=== PATIENT | male | born 1970 | race Caucasian/White ===

== ENCOUNTER 2017-10-20 18:33 | Emergency (ER) | payer OTHER ==
[2017-10-20] MEDS ORDERED: Pepcid 20 MG VIAL IV ONE ×2 (19:11→19:27)
[2017-10-20] MEDS ORDERED: Zofran 4 MG/2 ML VIAL IV ONE (19:11)
[2017-10-20] MEDS ORDERED: BENADRYL 50 MG/ML IV ONE (19:11)
[2017-10-20] MEDS ORDERED: Sodium Chloride 0.9% 1000 ML 1,000 ML IV STA (19:11)
[2017-10-20] MEDS ORDERED: Hydromorphone 1 mg/ml Ampule IV ONE (19:11)
--- NOTE | 2017-10-20 19:15 | ERPHSYRPT ---
- History of Present Illness Time Seen by Provider: 10/20/17 19:07 Historian: patient Patient Subjective Stated Complaint: PT REPORTS FEELING LIKE HIS STOMACH IS GOING TO EXPLODE SINCE YESTERDAY-REPORTS VOMITING EVERYTHING HE HAS ATTEMPTED TO EATEN-UNSURE OF FEVER-REPORTS SLIGHT CONSTIPATION THIS AM WITH A BOWEL MOVEMENT Triage Nursing Assessment: PT PALE WARM ET [id number] TENDER TO PALP-RESP EASY ET NONLABORED-BOWEL SOUNDS HYPOACTIVE BUT PRESENT Physician History: CC: abd pain Hx: 47 y/o patient of dr Salcedo with upper abd pain since last night. Feels like belly will explode. Pain worse in RUQ. Mild constipation, no diarrhea. He has been vomiting today. No fever. He had chills. No prior abd surgeries. Takes vitamins. No allergies. Pain is severe and sharp. Allergies/Adverse Reactions: No Known Drug Allergies Allergy (Verified 10/20/17 18:50) Hx Tetanus, Diphtheria Vaccination/Date Given: No Hx Influenza Vaccination/Date Given: No Hx Pneumococcal Vaccination/Date Given: No Immunizations Up to Date: Yes - Review of Systems Constitutional: Chills, Malaise, No Fever Eyes: No Symptoms Ears, Nose, & Throat: No Symptoms Respiratory: No Cough, No Dyspnea Cardiac: No Chest Pain Abdominal/Gastrointestinal: Abdominal Pain, Nausea, Vomiting, Constipation, No Diarrhea Genitourinary Symptoms: No Dysuria, No Hematuria, No Testicle Pain Musculoskeletal: No Back Pain Skin: No Rash Neurological: No Headache All Other Systems: Reviewed and Negative - Past Medical History Pertinent Past Medical History: Yes Neurological History: No Pertinent History ENT History: No Pertinent History Cardiac History: Other Respiratory History: No Pertinent History Endocrine Medical History: No Pertinent History Musculoskeletal History: No Pertinent History GI Medical History: No Pertinent History History: No Pertinent History Psycho-Social History: No Pertinent History Male Reproductive Disorders: No Pertinent History - Past Surgical History Past Surgical History: No Neuro Surgical History: No Pertinent History Cardiac: No Pertinent History Respiratory: No Pertinent History Gastrointestinal: No Pertinent History Genitourinary: No Pertinent History Musculoskeletal: No Pertinent History Male Surgical History: No Pertinent History - Social History Smoking Status: Former smoker Exposure to second hand smoke: Yes Drug Use: none Patient Lives Alone: No (stay home with kid) Significant Family History: no pertinent family hx - Nursing Vital Signs Nursing Vital Signs: Initial Vital Signs Temperature 97.5 F 10/20/17 18:51 Pulse Rate 90 10/20/17 18:51 Respiratory Rate 20 10/20/17 18:51 Blood Pressure 120/77 10/20/17 18:51 O2 Sat by Pulse Oximetry 98 10/20/17 18:51 Pain Scale Pain Intensity 7 - Physical Exam General Appearance: alert, obese Eye Exam: PERRL/EOMI, No scleral icterus Ears, Nose, Throat Exam: normal ENT inspection, moist mucous membranes Neck Exam: normal inspection, non-tender, supple Respiratory Exam: normal breath sounds Cardiovascular Exam: regular rate/rhythm, No murmur Gastrointestinal/Abdomen Exam: soft, tenderness (RUQ and epigastrum with mild guarding, no mass) Male Genitalia Exam: normal genitalia, No testicular tenderness Back Exam: normal inspection, No CVA tenderness Extremity Exam: normal inspection, normal range of motion Neurologic Exam: alert, oriented x 3, cooperative, medical dosimetrist II-XII nml as tested, sensation nml, No motor deficits Skin Exam: warm, dry, No rash SpO2 Interpretation: normal SpO2: 98 Oxygen Delivery: Room Air - Course Nursing assessment & vital signs reviewed: Yes EKG Interpreted by Me: RATE (82), Sinus Rhythm, NORMAL AXIS, NORMAL INTERVALS ( QTc 449), NORMAL QRS, NORMAL ST-T Ordered Tests: Active Orders 24 hr Category Date Time Status Clean Catch Urine Specimen STAT Care 10/20/17 19:11 Active EKG-ER Only STAT Care 10/20/17 19:11 Active IV Insertion STAT Care 10/20/17 19:11 Active NPO (ED) STAT Care 10/20/17 19:11 Active ABDOMEN AND PELVIS W CONTRAST [CT] Stat Exams 10/20/17 19:12 Taken BMP Stat Lab 10/20/17 19:20 Completed CBC W DIFF Stat Lab 10/20/17 19:20 Completed Hepatic Function Panel Stat Lab 10/20/17 19:20 Completed LIPASE Stat Lab 10/20/17 19:20 Completed Lactic Acid Stat Lab 10/20/17 19:25 Completed UA W/RFX UR CULTURE Stat Lab 10/20/17 19:11 Ordered Medication Summary Discontinued Medications Generic Name Dose Route Start Last Admin Trade Name Freq PRN Reason Stop Dose Admin Diphenhydramine HCl 25 mg 10/20/17 19:11 10/20/17 19:34 Benadryl 50 Mg/Ml IV 10/20/17 19:12 25 mg STAT ONE Administration Diphenhydramine HCl Confirm 10/20/17 19:27 Benadryl 50 Mg/Ml Administered 10/20/17 19:28 Dose 50 mg .ROUTE .STK-MED ONE Famotidine 20 mg 10/20/17 19:11 10/20/17 19:34 Pepcid 20 Mg Vial IV 10/20/17 19:12 20 mg STAT ONE Administration Famotidine Confirm 10/20/17 19:27 Pepcid 20 Mg Vial Administered 10/20/17 19:28 Dose 20 mg IV .STK-MED ONE Hydromorphone HCl 1 mg 10/20/17 19:11 10/20/17 19:34 Hydromorphone 1 Mg/Ml Ampule IV 10/20/17 19:12 1 mg STAT ONE Administration Hydromorphone HCl Confirm 10/20/17 19:27 Hydromorphone 1 Mg/Ml Ampule Administered 10/20/17 19:28 Dose 1 mg .ROUTE .STK-MED ONE Sodium Chloride 1,000 mls @ 999 mls/hr 10/20/17 19:11 10/20/17 19:34 Sodium Chloride 0.9% 1000 Ml IV 10/20/17 20:11 999 mls/hr .Q1H1M STA Administration Sodium Chloride Confirm 10/20/17 19:27 Sodium Chloride 0.9% 1000 Ml Administered 10/20/17 19:28 Dose 1,000 mls @ ud .ROUTE .STK-MED ONE Ondansetron HCl 4 mg 10/20/17 19:11 10/20/17 19:34 Zofran 4 Mg/2 Ml Vial IV 10/20/17 19:12 4 mg STAT ONE Administration Ondansetron HCl Confirm 10/20/17 19:27 Zofran 4 Mg/2 Ml Vial Administered 10/20/17 19:28 Dose 4 mg .ROUTE .STK-MED ONE Lab/Rad Data: Laboratory Result Diagrams 10/20/17 19:20 10/20/17 19:20 Laboratory Results 10/20/17 10/20/17 10/20/17 Range/Units 19:25 19:20 19:20 WBC 10.8 H (4.0-10.5) K/mm3 RBC 5.48 (4.1-5.6) M/mm3 Hgb 15.8 (12.5-18.0) gm/dl Hct 48.4 (42-50) % MCV 88.3 (78-100) fl MCH 28.8 (26-32) pg MCHC 32.6 (32-36) g/dl RDW 14.4 H (11.5-14.0) % Plt Count 303 (150-450) K/mm3 MPV 9.6 H (6-9.5) fl Gran % 84.0 H (36.0-66.0) % Lymphocytes % 8.0 L (24.0-44.0) % Monocytes % 6.6 (0.0-12.0) % Eosinophils % 1.3 (0.00-5.0) % Basophils % 0.1 (0.0-0.4) % Basophils # 0.01 (0-0.4) Sodium 136 (136-145) mEq/L Potassium 3.9 (3.5-5.1) mEq/L Chloride 102 (98-107) mEq/L Carbon Dioxide 23.5 (21-32) mEq/L Anion Gap 14.8 (5-15) MEQ/L BUN 17 (9-20) mg/dL Creatinine 1.15 (0.55-1.30) mg/dl Estimated GFR > 60 ML/MIN Glucose 178 H (70-110) MG/DL Lactic Acid 1.2 (0.4-2.0) Calcium 8.3 L (8.5-10.1) mg/dL Total Bilirubin 0.60 (0.2-1.0) mg/dL Direct Bilirubin 0.14 (0.0-0.2) MG/DL AST 24 (15-37) U/L ALT 46 (12-78) U/L Alkaline Phosphatase 98 (46-116) U/L Serum Total Protein 7.9 (6.4-8.2) gm/dL Albumin 3.5 (3.4-5.0) g/dL Lipase 95 (73-393) U/L - Progress Progress Note: 10/20/17 19:[address] to assess for choleycystitis or pancreatitis or perforation. 10/20/17 20:31 CT abd/pelvis: glenn 8:28 PM 10/20/2017: No comps. Mild fluid distended small bowel loops w/ synchronous fluid leveling, ileus vs enteritis. Normal appy. Mild sigmoid diverticulosis. Fatty liver w/ 2 x 4cm hypodense lesion possibly hemangioma. 2.5cm gallstone. 3.2cm R renal cyst. 10/20/17 20:37 Pain and nausea improved. IVF given. Eating popsicle. Explained test results. Advised he follow up with Dr Salcedo in 1-2 days, have sugar rechecked, and will likely need gb sonogram. Will release with zofran and instr. Counseled pt/family regarding: lab results, diagnosis, need for follow-up, rad results - Departure Time of Disposition: 20:37 Departure Disposition: Home Clinical Impression: Abdominal pain, Vomiting, Gallstone Condition: Fair Critical Care Time: No Referrals: ORIN SALCEDO [Primary Care Provider] - Instructions: Abdominal Pain-Adult Additional Instructions: Sip fluids, then bland low fat, no spicy, no grease diet. See Dr Salcedo in 1-2 days for recheck and to recheck gallbladder and sugar. No driving tonite. Rletitia montague to [place]. ABDOMINAL PAIN 1. There are several different causes for abdominal pain, some of which may not be able to be identified on initial examination. 2. The important thing to remember is that bodily functions can change in a short period of time. If you notice any of the following symptoms, return to the emergency department or consult your doctor immediately: A. Worsening pain or no improvement in the next 12 hours. B. Increasing, severe abdominal pain C. Blood in stool D. Black stools E. Persistent vomiting F. Fever or chills or other symptoms Prescriptions: Ondansetron ODT 4 MG [Zofran Odt 4 mg] 1 tab PO Q6H PRN PRN #10 tab.rapdis PRN Reason: Nausea/Vomiting
[2017-10-20] MEDS ORDERED: Hydromorphone 1 mg/ml Ampule ONE (19:27)
[2017-10-20] MEDS ORDERED: Sodium Chloride 0.9% 1000 ML 1,000 ML ONE (19:27)
[2017-10-20] MEDS ORDERED: BENADRYL 50 MG/ML ONE (19:27)
[2017-10-20] MEDS ORDERED: Zofran 4 MG/2 ML VIAL ONE (19:27)
[2017-10-20 19:30] LABS: BASOPHIL % 0.1 % (0.0-0.4); Eosinophil % 1.3 % (0.00-5.0); Mean Cell Volume 88.3 fl (78-100); Mean Corpuscular Hemoglobin 28.8 pg (26-32); Mean Platelet Volume 9.6 fl (6-9.5); Monocytes % 6.6 % (0.0-12.0); Platelet Count 303 K/mm3 (150-450); Red Blood Count 5.48 M/mm3 (4.1-5.6); Red Cell Distribution Width 14.4 % (11.5-14.0); White Blood Count 10.8 K/mm3 (4.0-10.5)
[2017-10-20 19:49] LABS: ALBUMIN 3.5 g/dL (3.4-5.0); ALKALINE PHOSPHATASE 98 U/L (46-116); ANION GAP 14.8 MEQ/L (5-15); BLOOD UREA NITROGEN 17 mg/dL (9-20); CHLORIDE 102 mEq/L (98-107); Carbon Dioxide 23.5 mEq/L (21-32); Direct Bilirubin 0.14 MG/DL (0.0-0.2); Glucose 178 MG/DL (70-110); LIPASE 95 U/L (73-393); Potassium 3.9 mEq/L (3.5-5.1); SGOT/AST 24 U/L (15-37); SGPT/ALT 46 U/L (12-78); SODIUM 136 mEq/L (136-145); Total Protein 7.9 gm/dL (6.4-8.2)
[2017-10-20 20:32] VITALS: O2SAT 98
[2017-10-20 20:33] VITALS: BP 134/68
[2017-10-20] MEDS ORDERED: ZOFRAN ODT 4 MG PO ONE (20:36)
[2017-10-20] MEDS ORDERED: ZOFRAN ODT 4 MG ONE (20:38)
[2017-10-20 20:44] VITALS: PULSE 78
--- NOTE | 2017-10-21 09:06 | XRAY ---
Indication: Abdominal pain and emesis. Hypoactive bowel sounds. Multiple contiguous axial images obtained through the abdomen and pelvis using 80 cc Isovue 370 contrast only. Comparison: None Lung bases demonstrates mild bibasilar dependent atelectasis. No infiltrate or effusion. Heart is not enlarged. Noncontrasted stomach and bowel loops appear nonobstructed. There are several mildly fluid distended jejunal and ileal bowel loops with synchronous fluid leveling, ileus versus enteritis. Normal appendix. Mild scattered sigmoid diverticulosis without diverticulitis. No free fluid/air. Mild diffuse fatty liver with 2 x 4 cm hypodense lesion just lateral to the falciform ligament with subtle centripetal enhancement on delayed imaging favoring hemangioma. 2.5 cm gallstone. No abnormal biliary distention. Both kidneys enhance and excrete with a 3.5 cm exophytic right renal cyst. Remaining liver, gallbladder, pancreas, spleen, adrenal glands, kidneys, ureters, and bladder appear unremarkable. Very minimal aortoiliac calcifications. No clear pathologic retroperitoneal lymphadenopathy. Osseous structures intact. Impression: 1. Fluid distended small bowel loops with synchronous fluid leveling, ileus versus enteritis. 2. Sigmoid diverticulosis without diverticulitis. 3. Fatty liver. Probable hepatic hemangioma which could be confirmed with repeat CT exam using hemangioma protocol. 4. Gallstone and right renal cyst. CT DI 23.68
== END 2017-10-20 20:50 | disposition home or self-care (01) ==
LOC: ED 18:33
DX: R10.10 Upper abdominal pain, unspecified (principal); R11.2 Nausea with vomiting, unspecified; K80.80 Other cholelithiasis without obstruction; R10.11 Right upper quadrant pain
CPT/HCPCS: 36000; 36415; 74177; 80048; 80076; 83605; 83690; 85025; 93005; 99284; J1170; J1200; J2405; Q0162

== ENCOUNTER 2018-04-28 03:25 | Emergency (ER) | payer OTHER ==
[2018-04-28] MEDS ORDERED: Sodium Chloride 0.9% 1000 ML 1,000 ML ONE (03:58)
[2018-04-28] MEDS ORDERED: Zofran 4 MG/2 ML VIAL ONE (03:58)
[2018-04-28] MEDS ORDERED: MORPHINE SULFATE 4 MG INJ ONE ×2 (03:58→06:01)
[2018-04-28] MEDS: Sodium Chloride 0.9% 1000 ML 1,000 ML IV STA (04:01)
[2018-04-28] MEDS: Zofran 4 MG/2 ML VIAL IV ONE (04:01)
[2018-04-28] MEDS: MORPHINE SULFATE 4 MG INJ IV ONE ×2 (04:01→06:03)
[2018-04-28 04:14] LABS: BASOPHIL % 0.2 % (0.0-0.4); Basophil (Absolute #) 0.03 (0-0.4); Eosinophil % 4.4 % (0.00-5.0); Eosinophil (Absolute #) 0.54 (0-0.5); Granulocyte Absolute (ANC) 8.59 (1.4-6.9); Granulocytes % 69.9 % (36.0-66.0); Hematocrit 34.9 % (42-50); Hemoglobin 11.4 gm/dl (12.5-18.0); Lymphocyte (Absolute #) 2.07 (1.0-4.6); Lymphocytes % 16.9 % (24.0-44.0); Mean Cell Volume 89.5 fl (78-100); Mean Corpuscular Hemoglobin 29.2 pg (26-32); Mean Corpuscular Hgb Concent. 32.7 g/dl (32-36); Mean Platelet Volume 9.9 fl (6-9.5); Monocyte (Absolute #) 1.05 (0.0-1.3); Monocytes % 8.6 % (0.0-12.0); Platelet Count 491 K/mm3 (150-450); Red Cell Distribution Width 13.8 % (11.5-14.0); White Blood Count 12.3 K/mm3 (4.0-10.5)
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
[2018-04-28 04:30] LABS: ALBUMIN 4.1 g/dL (3.5-5.0); ANION GAP 14.9 MEQ/L (5-15); BILIRUBIN,TOTAL 0.4 mg/dL (0.2-1.3); Calcium 9.1 mg/dL (8.4-10.2); Creatinine 1 1.71 mg/dL (0.66-1.25); Potassium 4.1 mmol/L (3.5-5.1); Total Protein 7.7 g/dL (6.3-8.2)
[2018-04-28 06:18] LABS: Appearance CLEAR (CLEAR); Bacteria MODERATE /HPF (NEGATIVE); Bilirubin NEGATIVE (NEGATIVE); Blood 250 Ery/ul (0-5); Epithelial Cells FEW /HPF (FEW); Glucose NEGATIVE (NEGATIVE); Ketones NEGATIVE (NEGATIVE); Leukocyte Esterase TRACE (NEGATIVE); Mucus SLIGHT /HPF (NEGATIVE); Nitrite NEGATIVE (NEGATIVE); Protein,Urine Dip TRACE (Negative); Urobilinogen NORMAL mg/dL (0-1); WBC 0-2 /HPF (0-5)
[2018-04-28] MEDS: Flomax 0.4 MG PO ONE (06:31)
[2018-04-28] MEDS ORDERED: Flomax 0.4 MG ONE (06:31)
[2018-04-28 06:33] VITALS: BP 121/78; PULSE 65
[2018-04-28 06:34] VITALS: O2SAT 100
--- NOTE | 2018-04-28 08:57 | XRAY ---
Indication: Right lower quadrant pain. Difficulty urinating. Multiple contiguous axial images obtained through the abdomen and pelvis without contrast using renal stone protocol. Comparison: Contrast exam October 20, 2017. Lung bases again demonstrates minimal dependent atelectasis, less than before. New inferior lingular noncalcified masslike opacity measuring at least 2 cm in greatest axial dimension with irregular margins. Heart is not enlarged. New 2-3 mm distal right ureteral calculus approximately 1 cm proximal to the UVJ. There is also new mild right-sided hydronephrosis, perinephric stranding, and mild ureteral prominence consistent with obstructive uropathy. Stable right upper renal pole exophytic cyst. Noncontrasted stomach and bowel loops appear nonobstructed. Normal appendix. Stable fatty liver and previous reported hepatic hemangioma. Interval enlarging 3 cm gallstone without abnormal biliary distention. Stable 8 mm left adrenal adenoma. Remaining liver, gallbladder, pancreas, spleen, adrenal glands, left kidney, left ureter, and bladder appear unremarkable for noncontrast exam. Again very minimal aortoiliac calcifications without AAA. Osseous structures intact. Impression: 1. New 2-3 mm distal right ureteral calculus producing obstruction as detailed. 2. Stable right renal cyst, left adrenal adenoma, fatty liver, and previous reported hepatic hemangioma. 3. Minimally enlarging 3 cm gallstone better evaluated with ultrasound if clinically warranted. 4. New 2 cm lingula masslike opacity. Comparison CT chest studies would be of benefit if performed elsewhere. If not available, recommend CT chest to establish baseline with follow-up exams per Fleischner guidelines. Alternatively, PET/CT could be performed. Comment: Preliminary interpretation was made by [facility]. No discrepancy. CTDI 28.13
== END 2018-04-28 07:07 | disposition home or self-care (01) ==
LOC: ED 03:25
DX: N13.2 Hydronephrosis with renal and ureteral calculous obstruction (principal); Z79.899 Other long term (current) drug therapy
CPT/HCPCS: 36000; 36415; 74176; 80053; 81000; 83690; 85025; 87086; 96360; 96374; 96375; 96376; 99285; J2270; J2405; A9270-GY

== ENCOUNTER 2019-10-22 05:34 | Emergency (ER) | payer OTHER ==
[2019-10-22] MEDS ORDERED: MORPHINE SULFATE 2 MG INJ IV ONE (05:51)
[2019-10-22] MEDS ORDERED: Sodium Chloride 0.9% 1000 ML 1,000 ML IV STA (05:51)
[2019-10-22] MEDS ORDERED: Sodium Chloride 0.9% 1000 ML 1,000 ML ONE (05:55)
[2019-10-22] MEDS ORDERED: MORPHINE SULFATE 2 MG INJ ONE (05:55)
--- NOTE | 2019-10-22 05:55 | ERPHSYRPT ---
- History of Present Illness Time Seen by Provider: 10/22/19 05:53 Historian: patient Exam Limitations: no limitations Patient Subjective Stated Complaint: pt c/o lt lower abd pain that radiates to scrotum area Triage Nursing Assessment: pt ambulated to rm 6, cooperative and alert and oriented x3. Pt c/o LLQ pain, tender on palpation which radiates to lt scrotal area. Abd lg, obese with active bs x4 quad. Lungs clear, Physician History: Pt c/o LLQ pain, tender on palpation which radiates to lt scrotal area, no fever, no blood in urine Timing/Duration: today Quality: aching, cramping Abdominal Pain Onset Location: LLQ Pain Radiation: groin Severity of Pain-Max: moderate Severity of Pain-Current: moderate Modifying Factors: Improves With: nothing Associated Symptoms: denies symptoms Allergies/Adverse Reactions: No Known Drug Allergies Allergy (Verified 04/28/18 03:37) Hx Tetanus, Diphtheria Vaccination/Date Given: Yes Hx Influenza Vaccination/Date Given: No Hx Pneumococcal Vaccination/Date Given: No Immunizations Up to Date: Yes - Review of Systems Constitutional: No Fever, No Chills Eyes: No Symptoms Ears, Nose, & Throat: No Symptoms Respiratory: No Cough, No Dyspnea Cardiac: No Chest Pain, No Edema, No Syncope Abdominal/Gastrointestinal: Abdominal Pain, No Nausea, No Vomiting, No Diarrhea Genitourinary Symptoms: Urgency, Flank Pain, Testicle Pain, No Dysuria, No Hematuria, No Urinary Retention Musculoskeletal: No Back Pain, No Neck Pain Skin: No Rash Neurological: No Dizziness, No Focal Weakness, No Sensory Changes Psychological: No Symptoms Endocrine: No Symptoms All Other Systems: Reviewed and Negative - Past Medical History Pertinent Past Medical History: Yes Neurological History: No Pertinent History ENT History: No Pertinent History Cardiac History: Arrhythmia Respiratory History: No Pertinent History Endocrine Medical History: No Pertinent History Musculoskeletal History: No Pertinent History GI Medical History: No Pertinent History History: No Pertinent History Psycho-Social History: No Pertinent History Male Reproductive Disorders: No Pertinent History - Past Surgical History Past Surgical History: Yes Neuro Surgical History: No Pertinent History Cardiac: No Pertinent History Respiratory: No Pertinent History Gastrointestinal: No Pertinent History Genitourinary: No Pertinent History Musculoskeletal: No Pertinent History Male Surgical History: No Pertinent History Other Surgical History: left foot reconstruction from mowing accident - Social History Smoking Status: Former smoker Exposure to second hand smoke: No Drug Use: none Patient Lives Alone: No Significant Family History: no pertinent family hx - Nursing Vital Signs Nursing Vital Signs: Initial Vital Signs Temperature 98.0 F 10/22/19 05:39 Pulse Rate 84 10/22/19 05:39 Respiratory Rate 18 10/22/19 05:39 Blood Pressure 158/97 10/22/19 05:39 O2 Sat by Pulse Oximetry 98 10/22/19 05:39 Pain Scale Pain Intensity 8 - Physical Exam General Appearance: no apparent distress, alert Eye Exam: PERRL/EOMI, eyes nml inspection Ears, Nose, Throat Exam: normal ENT inspection, pharynx normal, moist mucous membranes Neck Exam: normal inspection, non-tender, supple, full range of motion Respiratory Exam: normal breath sounds, lungs clear, No respiratory distress Cardiovascular Exam: regular rate/rhythm, normal heart sounds Gastrointestinal/Abdomen Exam: soft, No tenderness, No mass Back Exam: normal inspection, normal range of motion, No CVA tenderness, No vertebral tenderness Extremity Exam: normal inspection, normal range of motion, pelvis stable Neurologic Exam: alert, oriented x 3, cooperative, normal mood/affect, nml cerebellar function, sensation nml, No motor deficits Skin Exam: normal color, warm, dry SpO2: 98 - Course Nursing assessment & vital signs reviewed: Yes - CT Exams Abdomen/Pelvis CT Interpretation: Tele-radiologist Report (left side ureteric stone passed in to bladder) Ordered Tests: Active Orders 24 hr Category Date Time Status ABDOMEN AND PELVIS W/0 CONTRAS [CT] Stat Exams 10/22/19 06:08 Taken AMYLASE Stat Lab 10/22/19 06:05 Completed CBC W DIFF Stat Lab 10/22/19 06:05 Completed CMP Stat Lab 10/22/19 06:05 Completed LIPASE Stat Lab 10/22/19 06:05 Completed UA W/RFX UR CULTURE Stat Lab 10/22/19 06:00 Completed Medication Summary Generic Name Dose Route Start Last Admin Trade Name Freq PRN Reason Stop Dose Admin Ceftriaxone Sodium/Dextrose 1 g in 50 mls @ 100 mls/hr 10/22/19 07:41 Rocephin 1 Gm-D5w 50 Ml Bag IV 10/22/19 08:10 STAT STA Metformin HCl 1,000 mg 10/22/19 18:00 Glucophage Xr 500 Mg PO 11/21/19 17:59 EVENING MEAL CHINO Discontinued Medications Generic Name Dose Route Start Last Admin Trade Name Mariam PRN Reason Stop Dose Admin Sodium Chloride 1,000 mls @ 999 mls/hr 10/22/19 05:51 10/22/19 07:11 Sodium Chloride 0.9% 1000 Ml IV 10/22/19 06:51 Infused .Q1H1M STA Infusion Sodium Chloride Confirm 10/22/19 05:55 Sodium Chloride 0.9% 1000 Ml Administered 10/22/19 05:56 Dose 1,000 mls @ ud .ROUTE .STK-MED ONE Ceftriaxone Sodium/Dextrose Confirm 10/22/19 07:39 Rocephin 1 Gm-D5w 50 Ml Bag Administered 10/22/19 07:40 Dose 1 g in 50 mls @ ud IV .STK-MED ONE Morphine Sulfate 2 mg 10/22/19 05:51 10/22/19 05:58 Morphine Sulfate 2 Mg Inj IV 10/22/19 05:52 2 mg STAT ONE Administration Morphine Sulfate Confirm 10/22/19 05:55 Morphine Sulfate 2 Mg Inj Administered 10/22/19 05:56 Dose 2 mg .ROUTE .STK-MED ONE Lab/Rad Data: Laboratory Result Diagrams 10/22/19 06:05 10/22/19 06:05 Laboratory Results 10/22/19 10/22/19 10/22/19 Range/Units Unknown 06:05 06:05 WBC 7.8 (4.0-10.5) K/mm3 RBC 4.92 (4.1-5.6) M/mm3 Hgb 13.9 (12.5-18.0) gm/dl Hct 43.5 (42-50) % MCV 88.4 (78-100) fl MCH 28.3 (26-32) pg MCHC 32.0 (32-36) g/dl RDW 14.6 H (11.5-14.0) % Plt Count 288 (150-450) K/mm3 MPV 10.2 H (6-9.5) fl Gran % 61.0 (36.0-66.0) % Eos # (Auto) 0.34 (0-0.5) Absolute Lymphs (auto) 2.01 (1.0-4.6) Absolute Monos (auto) 0.69 (0.0-1.3) Lymphocytes % 25.6 (24.0-44.0) % Monocytes % 8.8 (0.0-12.0) % Eosinophils % 4.3 (0.00-5.0) % Basophils % 0.3 (0.0-0.4) % Absolute Granulocytes 4.78 (1.4-6.9) Basophils # 0.02 (0-0.4) Sodium 134 L (137-145) mmol/L Potassium 5.0 (3.5-5.1) mmol/L Chloride 102 (98-107) mmol/L Carbon Dioxide 25 (22-30) mmol/L Anion Gap 12.3 (5-15) MEQ/L BUN 23 H (9-20) mg/dL Creatinine 1.18 (0.66-1.25) mg/dL Estimated GFR > 60.0 ML/MIN Glucose 286 H (74-106) mg/dL Hemoglobin A1c 10.99 H (4.5-6.0) % Calcium 9.4 (8.4-10.2) mg/dL Total Bilirubin 0.40 (0.2-1.3) mg/dL AST 27 (17-59) U/L ALT 52 H (0-50) U/L Alkaline Phosphatase 87 (38-126) U/L Serum Total Protein 7.6 (6.3-8.2) g/dL Albumin 3.9 (3.5-5.0) g/dL Amylase 60 (30-110) U/L Lipase 131 (23-300) U/L Urine Color (YELLOW) Urine Appearance (CLEAR) Urine pH (5-6) Ur Specific Sumner (1.005-1.025) Urine Protein (Negative) Urine Ketones (NEGATIVE) Urine Blood (0-5) Surinder/ul Urine Nitrite (NEGATIVE) Urine Bilirubin (NEGATIVE) Urine Urobilinogen (0-1) mg/dL Ur Leukocyte Esterase (NEGATIVE) Urine WBC (Auto) (0-5) /HPF Urine RBC (Auto) (0-2) /HPF U Epithel Cells (Auto) (FEW) /HPF Urine Bacteria (Auto) (NEGATIVE) /HPF Urine Culture Reflexed (NO) Urine Glucose (NEGATIVE) mg/dL 10/22/19 Range/Units 06:00 WBC (4.0-10.5) K/mm3 RBC (4.1-5.6) M/mm3 Hgb (12.5-18.0) gm/dl Hct (42-50) % MCV (78-100) fl MCH (26-32) pg MCHC (32-36) g/dl RDW (11.5-14.0) % Plt Count (150-450) K/mm3 MPV (6-9.5) fl Gran % (36.0-66.0) % Eos # (Auto) (0-0.5) Absolute Lymphs (auto) (1.0-4.6) Absolute Monos (auto) (0.0-1.3) Lymphocytes % (24.0-44.0) % Monocytes % (0.0-12.0) % Eosinophils % (0.00-5.0) % Basophils % (0.0-0.4) % Absolute Granulocytes (1.4-6.9) Basophils # (0-0.4) Sodium (137-145) mmol/L Potassium (3.5-5.1) mmol/L Chloride (98-107) mmol/L Carbon Dioxide (22-30) mmol/L Anion Gap (5-15) MEQ/L BUN (9-20) mg/dL Creatinine (0.66-1.25) mg/dL Estimated GFR ML/MIN Glucose (74-106) mg/dL Hemoglobin A1c (4.5-6.0) % Calcium (8.4-10.2) mg/dL Total Bilirubin (0.2-1.3) mg/dL AST (17-59) U/L ALT (0-50) U/L Alkaline Phosphatase (38-126) U/L Serum Total Protein (6.3-8.2) g/dL Albumin (3.5-5.0) g/dL Amylase (30-110) U/L Lipase (23-300) U/L Urine Color YELLOW (YELLOW) Urine Appearance CLEAR (CLEAR) Urine pH 5.0 (5-6) Ur Specific Sumner 1.025 (1.005-1.025) Urine Protein NEGATIVE (Negative) Urine Ketones NEGATIVE (NEGATIVE) Urine Blood NEGATIVE (0-5) Surinder/ul Urine Nitrite NEGATIVE (NEGATIVE) Urine Bilirubin NEGATIVE (NEGATIVE) Urine Urobilinogen NEGATIVE (0-1) mg/dL Ur Leukocyte Esterase NEGATIVE (NEGATIVE) Urine WBC (Auto) NONE (0-5) /HPF Urine RBC (Auto) NONE (0-2) /HPF U Epithel Cells (Auto) NONE (FEW) /HPF Urine Bacteria (Auto) NONE (NEGATIVE) /HPF Urine Culture Reflexed NO (NO) Urine Glucose >=500 (NEGATIVE) mg/dL - Progress Progress: improved Counseled pt/family regarding: lab results, diagnosis, need for follow-up, rad results - Departure Departure Disposition: Home Clinical Impression: Bladder stone, Pyelonephritis of left kidney Type 2 diabetes mellitus Qualifiers: Diabetes mellitus fpc insulin use: without terminal superintendent use Diabetes mellitus complication status: with skin complications Diabetes mellitus complication detail: with dermatitis Qualified Code(s): E11.620 - Type 2 diabetes mellitus with diabetic dermatitis Condition: Stable Critical Care Time: Yes Critical Care Time(excluding separately billable procedures): Critical 30-74 mins Referrals: ORIN HUTCHINSON [Primary Care Provider] - Instructions: Kidney Stones in Adults, Type 2 Diabetes Additional Instructions: Discharge/Care Plan JORGE GREGG was seen on 10/22/19 in the Emergency Room. The patient was counseled regarding Diagnosis,Lab results, Imaging studies, need for follow up and when to return to the Emergency Room. Prescriptions given: Discharge Note I have spoken with the patient and/or caregivers. I have explained the patient' s condition, diagnosis and treatment plan based on the information available to me at this time. I have answered the patient's and/or caregiver's questions and addressed any concerns. The patient and/or caregivers have as good understanding of the patient's diagnosis, condition and treatment plan as can be expected at this point. The vital signs have been stable. The patient's condition is stable and appropriate for discharge from the emergency department. The patient will pursue further outpatient evaluation with the primary care physician or other designated or consulting physician as outlined in the discharge instructions. The patient and/or caregivers are agreeable to this plan of care and follow-up instructions have been explained in detail. The patient and/or caregivers have received these instruction. The patient/and or caregivers are aware that any significant change in condition or worsening of symptoms should prompt an immediate return to this or the closest emergency department or call 911. GREGGJORGE Zuhair was seen on 10/22/19 n the Emergency Room. At that time you were treated for an emergent condition, during your visit Laboratory, Radiology and/or other procedures may have been ordered. It is very important that you follow-up with your Primary Care Physician ORIN HUTCHINSON within the next 24-48 hours to review your Emergency Room visit and the final results of testing that was ordered. Some test results such as Urine Cultures, Blood Cultures, and other cultures if ordered will not be finalized for 24-48 hours. If you do not have a Primary Care Provider please call the medical records department at [phone] ext [phone] to obtain a copy of your results or you may sign into our patient portal to obtain these results by visiting us @ [email or web address] and completing the following steps: 1. Click on the Patient Portal link 2. Click the Patient Self Enrollment Link to complete the enrollment form and entering your 3. Once the enrollment form is completed you will receive an email with a temporary ID and password at the email address you provided. 4. Next choose a user name and password. Your user name must be at least 4 characters long and your password must be at least 4 characters long. 5. Choose a security question from the list and provide your answer to the question. If you already have signed into the Health Portal you may access your Health Care Information 18/05 by the following steps: 1. Login to our website @ [email or web address] 2. Enter your original user name and password. FAQS The [facility] Health Portal is an online tool that contains your Lab Results, Radiology Reports, Visit History, Discharge Instructions and Health Summary Lab and Radiology Results will not be available for 72 hours on the portal. The Portal is a secure site, passwords are encryted and URLs are re-written so they cannot be copied and pasted. You and authorized family members are the only ones who can access your Portal. Also there is a timeout feature that protects your information if you leave the Portal page open. If you have technical difficulty please use the Contact Us link on the page this will allow you to submit any questions you have regarding the Portal or you may contact the Medical Record Department at [phone]. Prescriptions: Ciprofloxacin [Cipro 500 MG] 500 mg PO BIDAC #20 tablet Metformin HCl [Metformin HCl ER] 750 mg PO PC #30 [id number].er.[id number]
[2019-10-22 06:01] LABS: Appearance CLEAR (CLEAR); Bilirubin NEGATIVE (NEGATIVE); Blood NEGATIVE Ery/ul (0-5); Glucose >=500 mg/dL (NEGATIVE); Ketones NEGATIVE (NEGATIVE); Leukocyte Esterase NEGATIVE (NEGATIVE); Nitrite NEGATIVE (NEGATIVE); Protein,Urine Dip NEGATIVE (Negative); Specific Gravity 1.025 (1.005-1.025); Urobilinogen NEGATIVE mg/dL (0-1)
[2019-10-22 06:07] LABS: Absolute Neutrophil Ct (ANC) 4.78 (1.4-6.9); BASOPHIL % 0.3 % (0.0-0.4); Basophil (Absolute #) 0.02 (0-0.4); Eosinophil % 4.3 % (0.00-5.0); Eosinophil (Absolute #) 0.34 (0-0.5); Hematocrit 43.5 % (42-50); Hemoglobin 13.9 gm/dl (12.5-18.0); Lymphocyte (Absolute #) 2.01 (1.0-4.6); Lymphocytes % 25.6 % (24.0-44.0); Mean Cell Volume 88.4 fl (78-100); Mean Corpuscular Hemoglobin 28.3 pg (26-32); Mean Platelet Volume 10.2 fl (6-9.5); Monocyte (Absolute #) 0.69 (0.0-1.3); Monocytes % 8.8 % (0.0-12.0); Platelet Count 288 K/mm3 (150-450); Red Blood Count 4.92 M/mm3 (4.1-5.6); Red Cell Distribution Width 14.6 % (11.5-14.0); White Blood Count 7.8 K/mm3 (4.0-10.5)
[2019-10-22 06:19] LABS: ALBUMIN 3.9 g/dL (3.5-5.0); ALKALINE PHOSPHATASE 87 U/L (38-126); AMYLASE 60 U/L (30-110); ANION GAP 12.3 MEQ/L (5-15); BLOOD UREA NITROGEN 23 mg/dL (9-20); CHLORIDE 102 mmol/L (98-107); Calcium 9.4 mg/dL (8.4-10.2); Carbon Dioxide 25 mmol/L (22-30); Creatinine 1 1.18 mg/dL (0.66-1.25); Glucose 286 mg/dL (74-106); LIPASE 131 U/L (23-300); SGOT/AST 27 U/L (17-59); SGPT/ALT 52 U/L (0-50); SODIUM 134 mmol/L (137-145); Total Protein 7.6 g/dL (6.3-8.2)
[2019-10-22 07:03] VITALS: BP 128/85
[2019-10-22] MEDS ORDERED: ROCEPHIN 1 Gm-D5w 50 ml Bag** 1 G/50 ML IVPB IV ONE (07:39)
[2019-10-22] MEDS ORDERED: ROCEPHIN 1 Gm-D5w 50 ml Bag** 1 G/50 ML IVPB IV STA (07:41)
[2019-10-22 07:48] VITALS: O2SAT 98
[2019-10-22 07:56] VITALS: PULSE 75
--- NOTE | 2019-10-22 12:11 | XRAY ---
Indication: Left lower quadrant pain. Multiple contiguous axial images obtained through the abdomen and pelvis using renal stone protocol. Comparison: April 28, 2018. Lung bases again demonstrates minimal bibasilar dependent atelectasis. No infiltrate or effusion. Heart is not enlarged. No renal calculus in either system. Left ureter is now slightly prominent and there is minimal left perinephric stranding. New urinary bladder punctate calculus at origin of urethra. Stable right upper pole exophytic cyst, fatty liver, large gallstone, and tiny left adrenal adenoma. Noncontrasted stomach and bowel loops appear nonobstructed. Normal appendix. Mild scattered colonic fecal debris throughout. Minimal sigmoid diverticulosis. No free fluid/air. Remaining liver, gallbladder, pancreas, spleen, adrenal glands, kidneys, ureters, and bladder appear unremarkable for noncontrast exam. Again minimal aortoiliac calcifications without AAA. Osseous structures intact. Impression: 1. New urinary bladder punctate calculus. Also new left perinephric stranding and left ureter prominence presumed from recent passage of said calculus. Stable right renal cyst. 2. Mild fecal stasis without obstruction. Minimal sigmoid diverticulosis. 3. Stable fatty liver, cholelithiasis, and left adrenal adenoma. Comment: Preliminary interpretation was made by [facility]. No critical discrepancy. CTDI 21.53
[2019-10-22] MEDS ORDERED: Glucophage XR 500 MG PO SCH (18:00)
== END 2019-10-22 08:05 | disposition home or self-care (01) ==
LOC: ED 05:34
DX: N21.0 Calculus in bladder (principal); N12 Tubulo-interstitial nephritis, not specified as acute or chronic; E11.620 Type 2 diabetes mellitus with diabetic dermatitis
CPT/HCPCS: 36000; 36415; 74176; 80053; 81001; 82150; 83036; 83690; 85025; 96360; 96365; 96374; 99284; 99291; J0696; J2270; A9270-GY

== ENCOUNTER 2022-01-29 02:49 | Emergency (ER) | payer OTHER ==
[2022-01-29 03:01] VITALS: PULSE 79
[2022-01-29] MEDS ORDERED: AMOXIL 500 MG PO ONE (03:18)
[2022-01-29] MEDS ORDERED: NORCO 5/325 MG PO ONE (03:18)
--- NOTE | 2022-01-29 03:18 | ERPHSYRPT ---
- History of Present Illness Time Seen by Provider: 01/29/22 03:05 Source: patient Exam Limitations: no limitations Patient Subjective Stated Complaint: "My tooth has been killing for 4 days and I can't get into the dentist for another week." Triage Nursing Assessment: Pt c/o lower R tooth pain, tooth on lower R jaw is decayed, pt states " only cold water helps the pain." pt denies fever at home, pt is afebrile currently, pt has upper dentures in place Physician History: This is a 51-year-old white male who has poor dentition and for 4 days has had worsening right lower tooth ache. He has been using [id number] Orajel in it is not helpful. Cold water helps briefly. Patient has not been taking any antibiotics. He can get into see the dentist for 1 week. Timing/Duration: gradual onset, days (4) Severity: moderate ENT Location: dental Prearrival Treatment: over the counter meds Associated Symptoms: tooth pain Allergies/Adverse Reactions: No Known Drug Allergies Allergy (Verified 04/28/18 03:37) Home Medications: Dulaglutide [Trulicity] 0.75 mg SQ 01/29/22 [History] Hx Tetanus, Diphtheria Vaccination/Date Given: Yes Hx Influenza Vaccination/Date Given: No Hx Pneumococcal Vaccination/Date Given: No Travel Risk - International Travel Have you traveled outside of the country in past 3 weeks: No - Coronavirus Screening Are you exhibiting any of the following symptoms?: No Close contact with a COVID-19 positive Pt in past 14-21 Days: No - Vaccine Status Have you recieved a Covid-19 vaccination: No - Review of Systems Constitutional: No Symptoms Eyes: No Symptoms Ears, Nose, & Throat: Other (Dental pain) Respiratory: No Symptoms Cardiac: No Symptoms Abdominal/Gastrointestinal: No Symptoms Genitourinary Symptoms: No Symptoms Musculoskeletal: No Symptoms Skin: No Symptoms Neurological: No Symptoms Psychological: No Symptoms Endocrine: No Symptoms Hematologic/Lymphatic: No Symptoms Immunological/Allergic: No Symptoms All Other Systems: Reviewed and Negative - Past Medical History Pertinent Past Medical History: Yes Neurological History: No Pertinent History ENT History: No Pertinent History Cardiac History: Arrhythmia Respiratory History: No Pertinent History Endocrine Medical History: No Pertinent History Musculoskeletal History: No Pertinent History GI Medical History: No Pertinent History History: No Pertinent History Psycho-Social History: No Pertinent History Male Reproductive Disorders: No Pertinent History - Past Surgical History Past Surgical History: Yes Neuro Surgical History: No Pertinent History Cardiac: No Pertinent History Respiratory: No Pertinent History Gastrointestinal: No Pertinent History Genitourinary: No Pertinent History Musculoskeletal: No Pertinent History Male Surgical History: No Pertinent History Other Surgical History: left foot reconstruction from mowing accident - Social History Smoking Status: Former smoker Exposure to second hand smoke: No Drug Use: none Patient Lives Alone: No Significant Family History: no pertinent family hx - Nursing Vital Signs Nursing Vital Signs: Initial Vital Signs Temperature 97.6 F 01/29/22 02:55 Pulse Rate 79 01/29/22 02:55 Respiratory Rate 18 01/29/22 02:55 Blood Pressure 152/91 01/29/22 02:55 O2 Sat by Pulse Oximetry 99 01/29/22 02:55 Pain Scale Pain Intensity 8 - Physical Exam General Appearance: no apparent distress, alert, anxiety, obese Eye Exam: bilateral eye: normal inspection, PERRL, EOMI Ear Exam: bilateral ear: auricle normal Throat Exam: dental tenderness (Poor dentition generally. 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, normal mood/affect, nml cerebellar function, nml station & gait, sensation nml Skin Exam: normal color, warm, dry SpO2 Interpretation: normal SpO2: 99 O2 Delivery: Room Air - Course Nursing assessment & vital signs reviewed: Yes - Progress Progress: unchanged Counseled pt/family regarding: diagnosis, need for follow-up - Departure Departure Disposition: Home Clinical Impression: Dental infection Condition: Stable Critical Care Time: No Referrals: ORIN HUTCHINSON [Primary Care Provider] - Follow up/PCP as directed Additional Instructions: After these 2 take home Rhodes pain pills, used Tylenol and ibuprofen for pain control. Take your antibiotics as prescribed. Follow-up with your dentist for definitive care. Prescriptions: Amoxicillin 500 mg Cap [Amoxil 500 mg] 500 mg PO TID #30 cap
[2022-01-29] MEDS ORDERED: AMOXIL 500 MG ONE (03:22)
[2022-01-29] MEDS ORDERED: NORCO 5/325 MG ONE (03:22)
[2022-01-29 03:42] VITALS: BP 144/92; O2SAT 98
== END 2022-01-29 03:42 | disposition home or self-care (01) ==
LOC: ED 02:49
DX: K04.7 Periapical abscess without sinus (principal)
CPT/HCPCS: 99283; A9270-GY

== ENCOUNTER 2022-03-02 04:05 | Emergency (ER) | payer OTHER ==
[2022-03-02] MEDS: KEFLEX 500 MG PO ONE (04:37)
[2022-03-02] MEDS ORDERED: KEFLEX 500 MG ONE (04:37)
[2022-03-02] MEDS: NORCO 5/325 MG PO ONE (04:43)
[2022-03-02] MEDS ORDERED: NORCO 5/325 MG ONE (04:43)
--- NOTE | 2022-03-02 04:43 | ERPHSYRPT ---
- History of Present Illness Time Seen by Provider: 03/02/22 04:38 Source: patient Exam Limitations: no limitations Patient Subjective Stated Complaint: pt states he has infection around his nail on his 3rd digit, lt hand. states it started approx 2 days ago, no known inj ury. Triage Nursing Assessment: pt alert and oriented, answers questions approp. pt ambulatory with steady gait noted. respirations nonlabored. skin warm and dry. redness and discoloration noted around nail on 3rd digit, lt hand. Physician History: 51 years old diabetic [id number] presented in the ER with left and third digit swelling/abscess around nails with Mayela to severe sharp pain and associated swelling of distal digit. No fever or chills reported. Denies any history of trauma. Timing/Duration: day(s) (2), gradual onset, worse Quality: painful Severity: moderate Location: hands Possible Causes: no cause identified Associated Symptoms: blisters, rash, swelling/mass/lumps Allergies/Adverse Reactions: No Known Drug Allergies Allergy (Verified 03/02/22 04:28) Home Medications: Dulaglutide [Trulicity] 0.75 mg SQ UD 01/29/22 [History] Hx Tetanus, Diphtheria Vaccination/Date Given: No (unsure) Hx Influenza Vaccination/Date Given: No Hx Pneumococcal Vaccination/Date Given: No Immunizations Up to Date: Yes Travel Risk - International Travel Have you traveled outside of the country in past 3 weeks: No - Coronavirus Screening Are you exhibiting any of the following symptoms?: No Close contact with a COVID-19 positive Pt in past 14-21 Days: No - Vaccine Status Have you recieved a Covid-19 vaccination: No - Past Medical History Pertinent Past Medical History: Yes Neurological History: No Pertinent History ENT History: No Pertinent History Cardiac History: Arrhythmia Respiratory History: No Pertinent History Endocrine Medical History: No Pertinent History Musculoskeletal History: No Pertinent History GI Medical History: No Pertinent History History: No Pertinent History Psycho-Social History: No Pertinent History Male Reproductive Disorders: No Pertinent History - Past Surgical History Past Surgical History: Yes Neuro Surgical History: No Pertinent History Cardiac: No Pertinent History Respiratory: No Pertinent History Gastrointestinal: No Pertinent History Genitourinary: No Pertinent History Musculoskeletal: No Pertinent History Male Surgical History: No Pertinent History Other Surgical History: left foot reconstruction from mowing accident - Social History Smoking Status: Former smoker Exposure to second hand smoke: No Drug Use: none Patient Lives Alone: No Significant Family History: no pertinent family hx - Nursing Vital Signs Nursing Vital Signs: Initial Vital Signs Temperature 97.8 F 03/02/22 04:14 Pulse Rate 80 03/02/22 04:14 Respiratory Rate 18 03/02/22 04:14 Blood Pressure 134/81 03/02/22 04:14 O2 Sat by Pulse Oximetry 99 03/02/22 04:14 Pain Scale Pain Intensity 7 - Physical Exam SpO2: 99 Ordered Tests: Medication Summary Discontinued Medications Generic Name Dose Route Start Last Admin Trade Name Freq PRN Reason Stop Dose Admin Cephalexin HCl 500 mg 03/02/22 04:34 03/02/22 04:37 Cephalexin Mh500 Mg Capsule PO 03/02/22 04:35 500 mg STAT ONE Administration Cephalexin HCl Confirm 03/02/22 04:37 Cephalexin Mh500 Mg Capsule Administered 03/02/22 04:38 Dose 500 mg .ROUTE .STK-MED ONE - Progress Progress: pain not gone completely Progress Note: 03/02/22 04:41 Given symptomatic treatment for pain. Needle aspiration is done. Patient feeling better on reevaluation. Started on Keflex. Outpatient follow-up recommended. Counseled pt/family regarding: diagnosis, need for follow-up - Departure Departure Disposition: Home Clinical Impression: Paronychia Condition: Stable Critical Care Time: No Referrals: ORIN HUTCHINSON [Primary Care Provider] - Follow up/PCP as directed (1-2 days for reevaluation) Instructions: Paronychia (DC) Additional Instructions: Take Tylenol/ibuprofen as needed. Antibiotics. Follow-up with primary care evaluation in 1-2 days. Return to ER for increasing pain swelling redness fever chills etc. Prescriptions: Cephalexin Mh 500 mg [Keflex 500 mg] 500 mg PO TID #21 cap
[2022-03-02 04:53] VITALS: BP 116/83; PULSE 81; O2SAT 97
== END 2022-03-02 04:57 | disposition home or self-care (01) ==
LOC: ED 04:05
DX: L03.012 Cellulitis of left finger (principal); M79.645 Pain in left finger(s)
CPT/HCPCS: 99283; A9270-GY

== ENCOUNTER 2022-07-05 16:04 | Emergency (ER) | payer OTHER ==
[2022-07-05] MEDS ORDERED: XYLOCAINE 1% HCL 20 ML MDV ONE (16:11)
[2022-07-05] MEDS ORDERED: XYLOCAINE-MPF 1% 5ML SDV IJ ONE (16:21)
[2022-07-05] MEDS ORDERED: XYLOCAINE 1% HCL 20 ML MDV IJ ONE (16:23)
[2022-07-05 16:39] VITALS: BP 164/106; PULSE 68; O2SAT 96
--- NOTE | 2022-07-05 16:39 | ERPHSYRPT ---
- History of Present Illness Time Seen by Provider: 07/05/22 16:10 Source: patient Exam Limitations: no limitations Patient Subjective Stated Complaint: Pt states "I have a wound around my anal opening." Triage Nursing Assessment: PT presented aelrt and oriented X 3, skin wpd. Pt ambualtes with an upright steady gait, able to speak in clear full sentences pt in no apparent respiratory distress. Pt has external hemrhoid. Physician History: This is a 52-year-old diabetic white male who is not on any blood thinning medication and presents with a left perianal mass that came on approximately 3 days ago and has enlarged and there is no significant tenderness present. He has never had anything like this before. Timing/Duration: day(s) (3) Quality: painful Severity: moderate Possible Causes: other (External thrombosed hemorrhoid) Associated Symptoms: swelling/mass/lumps (Left perianal region) Allergies/Adverse Reactions: No Known Drug Allergies Allergy (Verified 03/02/22 04:28) Home Medications: Dulaglutide [Trulicity] 0.75 mg SQ UD 01/29/22 [History] Hx Tetanus, Diphtheria Vaccination/Date Given: No (unsure) Hx Influenza Vaccination/Date Given: No Hx Pneumococcal Vaccination/Date Given: No Immunizations Up to Date: Yes Travel Risk - International Travel Have you traveled outside of the country in past 3 weeks: No - Coronavirus Screening Are you exhibiting any of the following symptoms?: No Close contact with a COVID-19 positive Pt in past 14-21 Days: No - Vaccine Status Have you recieved a Covid-19 vaccination: No - Review of Systems Constitutional: No Symptoms Eyes: No Symptoms Ears, Nose, & Throat: No Symptoms Respiratory: No Symptoms Cardiac: No Symptoms Abdominal/Gastrointestinal: Other (Left perianal tender mass) Genitourinary Symptoms: No Symptoms Musculoskeletal: No Symptoms Skin: No Symptoms Neurological: No Symptoms Psychological: No Symptoms Endocrine: No Symptoms Hematologic/Lymphatic: No Symptoms Immunological/Allergic: No Symptoms All Other Systems: Reviewed and Negative - Past Medical History Pertinent Past Medical History: Yes Neurological History: No Pertinent History ENT History: No Pertinent History Cardiac History: Arrhythmia Respiratory History: No Pertinent History Endocrine Medical History: No Pertinent History Musculoskeletal History: No Pertinent History GI Medical History: No Pertinent History History: No Pertinent History Psycho-Social History: No Pertinent History Male Reproductive Disorders: No Pertinent History - Past Surgical History Past Surgical History: Yes Neuro Surgical History: No Pertinent History Cardiac: No Pertinent History Respiratory: No Pertinent History Gastrointestinal: No Pertinent History Genitourinary: No Pertinent History Musculoskeletal: No Pertinent History Male Surgical History: No Pertinent History Other Surgical History: left foot reconstruction from mowing accident - Social History Smoking Status: Former smoker Exposure to second hand smoke: No Drug Use: none Patient Lives Alone: No Significant Family History: no pertinent family hx - Nursing Vital Signs Nursing Vital Signs: Initial Vital Signs Temperature 97.1 F 07/05/22 16:07 Pulse Rate 62 07/05/22 16:07 Respiratory Rate 20 07/05/22 16:07 Blood Pressure 178/100 07/05/22 16:07 Pain Scale Pain Intensity 8 - Physical Exam General Appearance: no apparent distress, alert, anxiety Eye Exam: PERRL/EOMI, eyes nml inspection Ears, Nose, Throat Exam: normal ENT inspection, moist mucous membranes Neck Exam: normal inspection, non-tender, supple, full range of motion Respiratory Exam: airway intact, No chest tenderness, No respiratory distress Gastrointestinal/Abdomen Exam: No tenderness Extremity Exam: tenderness (Left side perianal thrombosed external hemorrhoid. 2 cm x 1 cm) Neurologic Exam: alert, oriented x 3, cooperative, lav crewman II-XII nml as tested, normal mood/affect, nml cerebellar function, nml station & gait, sensation nml Skin Exam: normal color, warm, dry Lymphatic Exam: No adenopathy SpO2 Interpretation: normal O2 Delivery: Room Air Procedures - Additional Procedures Progress: Timeout performed at approximately 1615 p.m. The perianal area was prepped with Betadine. Next 2 mL of 1% lidocaine plain was injected intradermally in the skin overlying the external thrombosed hemorrhoid. An elliptical incision/excision was made of the skin overlying this thrombosed hemorrhoid. The blood clot was evacuated out well. Reexamination of the area showed no further blood clots present. There is a small amount of oozing of blood present. Patient states that the pain immediately lessened after evacuation of the blood clot. 4 x 4 gauze was placed into the area. There were no complications the patient taught procedure well. - Course Nursing assessment & vital signs reviewed: Yes Ordered Tests: Medication Summary Discontinued Medications Generic Name Dose Route Start Last Admin Trade Name Freq PRN Reason Stop Dose Admin Lidocaine HCl Confirm 07/05/22 16:11 Lidocaine Hcl 1% 20 Ml Mdv 20 Ml Ml Administered 07/05/22 16:12 Dose 5 ml .ROUTE .STK-MED ONE Lidocaine HCl 5 mg 07/05/22 16:21 07/05/22 16:22 Lidocaine Hcl/Pf 10 Mg/1 Ml 5ml Sdv IJ 07/05/22 16:22 Not Given STAT ONE Lidocaine HCl 5 ml 07/05/22 16:23 07/05/22 16:23 Lidocaine Hcl 1% 20 Ml Mdv 20 Ml Ml IJ 07/05/22 16:24 5 ml STAT ONE Administration - Progress Progress: improved Counseled pt/family regarding: diagnosis - Departure Departure Disposition: Home Clinical Impression: Thrombosed external hemorrhoid Condition: Stable Critical Care Time: No Referrals: ORIN HUTCHINSON [Primary Care Provider] - Follow up/PCP as directed Instructions: Hemorrhoids (DC) Additional Instructions: Expect some bleeding over the next few days from the perianal site. This should decrease the next 3 to 5 days. Sitz bath with warm soapy water or warm Epson salts 2-3 times a day. Cover the site with a Irais pad and change 1-2 times a day and as needed. Use Tylenol and ibuprofen for pain control.
== END 2022-07-05 16:46 | disposition home or self-care (01) ==
LOC: ED 16:04
DX: K64.5 Perianal venous thrombosis (principal); E11.9 Type 2 diabetes mellitus without complications; Z79.899 Other long term (current) drug therapy; Z28.310 Unvaccinated for COVID-19
CPT/HCPCS: 46083; 96372; 99283

== ENCOUNTER 2024-03-29 12:39 | Emergency (ER) | payer BC, OTHER ==
[2024-03-29 12:54] VITALS: RESP 16; TEMP 98.1
--- NOTE | 2024-03-29 13:04 | ERPHSYRPT ---
- History of Present Illness Source: patient Exam Limitations: no limitations Patient Subjective Stated Complaint: pt states I think I have a blood clot again Triage Nursing Assessment: pt ambulated into the er; pt is axo x4; c/o RLE; pt states 6/10 pain to RLE; reddness, warmth, and swelling present to RLE; weak rt pedal pulse; no respiratory distress present; vital wnl Method of Injury: unknown Occurred: days ago (5) Quality: constant Severity of Pain-Max: mild Severity of Pain-Current: mild Modifying Factors: Improves With: nothing Associated Symptoms: none Hx Tetanus, Diphtheria Vaccination/Date Given: Yes Hx Influenza Vaccination/Date Given: No Hx Pneumococcal Vaccination/Date Given: No <RITCHIE BECKFORD - Last Filed: 03/29/24 12:59> <FABIO ROONEY - Last Filed: 03/30/24 04:08> - History of Present Illness Time Seen by Provider: 03/29/24 12:45 Physician History: Patient is a 53-year-old male with a history of 2 previous DVTs had right Lower extremity swelling for the last 5 days, with worsening swelling today which was concerning so he came in to be evaluated. Patient has not had any testing or treatment for his leg or any recent injuries to his right leg (RITCHIE BECKFORD JARRETT) Allergies/Adverse Reactions: No Known Drug Allergies Allergy (Verified 03/29/24 12:44) Home Medications: Dulaglutide [Trulicity] 1.5 mg SQ UD 01/29/22 [History] Atorvastatin Calcium 10 mg PO DAILY 03/29/24 [History] Travel Risk - International Travel Have you traveled outside of the country in past 3 weeks: No - Emerging Infectious Disease Are you exhibiting symptoms associated with any current EIDs: No <RITCHIE BECKFORD JARRETT - Last Filed: 03/29/24 12:59> - Review of Systems Constitutional: No Fever, No Chills Eyes: No Symptoms Ears, Nose, & Throat: No Symptoms Respiratory: No Cough, No Dyspnea Cardiac: No Chest Pain, No Edema, No Syncope Abdominal/Gastrointestinal: No Abdominal Pain, No Nausea, No Vomiting, No Diarrhea Genitourinary Symptoms: No Dysuria Musculoskeletal: Other (Swelling to the right leg), No Back Pain, No Neck Pain Skin: No Rash Neurological: No Dizziness, No Focal Weakness, No Sensory Changes Psychological: No Symptoms Endocrine: No Symptoms Hematologic/Lymphatic: No Easy Bleeding, No Easy Bruising All Other Systems: Reviewed and Negative <RITCHIE BECKFORD - Last Filed: 03/29/24 12:59> - Past Medical History Pertinent Past Medical History: Yes Neurological History: No Pertinent History ENT History: No Pertinent History Cardiac History: Arrhythmia, High Cholesterol Respiratory History: No Pertinent History Endocrine Medical History: Diabetes Type II Musculoskeletal History: No Pertinent History GI Medical History: No Pertinent History History: No Pertinent History Psycho-Social History: No Pertinent History Male Reproductive Disorders: No Pertinent History - Past Surgical History Past Surgical History: Yes Neuro Surgical History: No Pertinent History Cardiac: No Pertinent History Respiratory: No Pertinent History Gastrointestinal: No Pertinent History Genitourinary: No Pertinent History Musculoskeletal: No Pertinent History Male Surgical History: No Pertinent History Other Surgical History: left foot reconstruction from mowing accident Significant Family History: no pertinent family hx - Social History Smoking Status: Former smoker Exposure to second hand smoke: No Drug Use: none Patient Lives Alone: No - Social Determinants of Health Will the patient participate in the screening: Yes Do you worry about a steady place to live?: No Do you have any problems with any of the following?: No known problems In the past 12 months,have you had to go without utilities?: No Transportation Issues: No Has anyone in your support network made you feel unsafe?: No Have you or anyone in your house had to go without enough: No <RITCHIE BECKFORD - Last Filed: 03/29/24 12:59> - Physical Exam General Appearance: no apparent distress, alert Eyes, Ears, Nose, Throat Exam: moist mucous membranes Neck Exam: non-tender, supple Cardiovascular/Respiratory Exam: chest non-tender, normal breath sounds, regular rate/rhythm, no respiratory distress Gastrointestinal/Abdominal Exam: non-tender, soft, guarding Back Exam: normal inspection, No vertebral tenderness Legs Exam: right leg: soft tissue tenderness, swelling Knees Exam: bilateral knee: non-tender, normal inspection, normal range of motion Ankle Exam: bilateral ankle: non-tender, normal inspection, normal range of motion Neuro/Tendon Exam: normal sensation, normal motor functions Mental Status Exam: alert, oriented x 3, cooperative Skin Exam: normal color, warm, dry SpO2: 98 <RITCHIE BECKFORD - Last Filed: 03/29/24 12:59> - Nursing Vital Signs Nursing Vital Signs: Initial Vital Signs Pulse Rate 88 03/29/24 12:46 Blood Pressure 118/78 03/29/24 12:46 O2 Sat by Pulse Oximetry 97 03/29/24 12:46 Pain Scale Pain Intensity 0 - Radiology Ultrasound Exam Venous Lower Extremity Ultrasound: Other (case d/w patients pmd he wants the patient to go home on eliquis and he wants the patient to have a cta chest) <FABIO ROONEY - Last Filed: 03/30/24 04:08> Ordered Tests: Active Orders 24 hr Category Date Time Status CHEST WITH CONTRAST [CT] Stat Exams 03/29/24 15:15 Completed VENOUS BILATERAL EXTREMITY [US] Stat Exams 03/29/24 13:19 Completed CBC W DIFF Stat Lab 03/29/24 13:25 Completed CK-Creatinine Phosphokinase Stat Lab 03/29/24 13:25 Completed CMP Stat Lab 03/29/24 13:25 Completed Lactic Acid Urgent Lab 03/29/24 13:25 Completed MAGNESIUM Stat Lab 03/29/24 13:25 Completed PROTIME WITH INR Stat Lab 03/29/24 13:25 Completed Medication Summary Discontinued Medications Generic Name Dose Route Start Last Admin Trade Name Jamesq PRN Reason Stop Dose Admin Apixaban 10 mg 03/29/24 18:44 03/29/24 18:51 Apixaban 2.5 Mg Tablet PO 03/29/24 18:45 10 mg NOW ONE Administration Enoxaparin Sodium 120 mg 03/29/24 18:25 03/29/24 18:36 Enoxaparin Sodium 120 Mg/0.8 Ml Syringe SQ 03/29/24 18:26 120 mg 1XONLY ONE Administration Enoxaparin Sodium Confirm 03/29/24 18:35 Enoxaparin Sodium 120 Mg/0.8 Ml Syringe Administered 03/29/24 18:36 Dose 120 mg SQ .STK-MED ONE Lab/Rad Data: Laboratory Result Diagrams 03/29/24 13:25 03/29/24 13:25 Laboratory Results 03/29/24 03/29/24 03/29/24 Range/Units 13:25 13:25 13:25 WBC (4.0-10.5) x10^3/uL RBC (4.1-5.6) x10^6/uL Hgb (12.5-18.0) g/dL Hct (42-50) % MCV (78-100) fL MCH (26-32) pg MCHC (32-36) g/dL RDW (11.5-14.0) % Plt Count (150-450) x10^3/uL MPV (7.5-11.0) fL Gran % (36.0-66.0) % Immature Gran % (Auto) (0.00-0.4) % Nucleat RBC Rel Count (0.00-0.1) % Eos # (Auto) (0-0.5) x10^3/uL Immature Gran # (Auto) (0.00-0.03) x10^3u/L Absolute Lymphs (auto) (1.0-4.6) x10^3/uL Absolute Monos (auto) (0.0-1.3) x10^3/uL Absolute Nucleated RBC (0.00-0.01) x10^3u/L Lymphocytes % (24.0-44.0) % Monocytes % (0.0-12.0) % Eosinophils % (0.00-5.0) % Basophils % (0.0-0.4) % Absolute Granulocytes (1.4-6.9) x10^3/uL Basophils # (0-0.4) x10^3/uL PT 10.3 (9.4-12.5) SECONDS INR 0.94 (0.8-3.0) Sodium (135-145) mmol/L Potassium (3.5-5.1) mmol/L Chloride (98-107) mmol/L Carbon Dioxide (22-30) mmol/L Anion Gap (5-15) MEQ/L BUN (9-20) mg/dL Creatinine (0.66-1.25) mg/dL Estimated GFR ML/MIN Glucose (74-106) mg/dL Lactic Acid 1.7 (0.4-2.0) Calcium (8.4-10.2) mg/dL Magnesium (1.6-2.3) mg/dL Total Bilirubin (0.2-1.3) mg/dL AST (17-59) U/L ALT (0-50) U/L Alkaline Phosphatase (38-126) U/L Creatine Kinase 89 (55-170) U/L Serum Total Protein (6.3-8.2) g/dL Albumin (3.5-5.0) g/dL 03/29/24 03/29/24 Range/Units 13:25 13:25 WBC 6.8 (4.0-10.5) x10^3/uL RBC 4.67 (4.1-5.6) x10^6/uL Hgb 13.3 (12.5-18.0) g/dL Hct 40.4 L (42-50) % MCV 86.5 (78-100) fL MCH 28.5 (26-32) pg MCHC 32.9 (32-36) g/dL RDW 13.2 (11.5-14.0) % Plt Count 274 (150-450) x10^3/uL MPV 9.6 (7.5-11.0) fL Gran % 65.2 (36.0-66.0) % Immature Gran % (Auto) 0.3 (0.00-0.4) % Nucleat RBC Rel Count 0.0 (0.00-0.1) % Eos # (Auto) 0.36 (0-0.5) x10^3/uL Immature Gran # (Auto) 0.02 (0.00-0.03) x10^3u/L Absolute Lymphs (auto) 1.36 (1.0-4.6) x10^3/uL Absolute Monos (auto) 0.59 (0.0-1.3) x10^3/uL Absolute Nucleated RBC 0.00 (0.00-0.01) x10^3u/L Lymphocytes % 19.9 L (24.0-44.0) % Monocytes % 8.6 (0.0-12.0) % Eosinophils % 5.3 H (0.00-5.0) % Basophils % 0.7 (0.0-0.4) % Absolute Granulocytes 4.45 (1.4-6.9) x10^3/uL Basophils # 0.05 (0-0.4) x10^3/uL PT (9.4-12.5) SECONDS INR (0.8-3.0) Sodium 136 (135-145) mmol/L Potassium 4.6 (3.5-5.1) mmol/L Chloride 105 (98-107) mmol/L Carbon Dioxide 23 (22-30) mmol/L Anion Gap 12.6 (5-15) MEQ/L BUN 17 (9-20) mg/dL Creatinine 0.86 (0.66-1.25) mg/dL Estimated GFR 104.2 ML/MIN Glucose 248 H (74-106) mg/dL Lactic Acid (0.4-2.0) Calcium 8.9 (8.4-10.2) mg/dL Magnesium 2.0 (1.6-2.3) mg/dL Total Bilirubin 0.60 (0.2-1.3) mg/dL AST 18 (17-59) U/L ALT 22 (0-50) U/L Alkaline Phosphatase 97 (38-126) U/L Creatine Kinase (55-170) U/L Serum Total Protein 7.6 (6.3-8.2) g/dL Albumin 3.9 (3.5-5.0) g/dL - Progress Discussed with Dr.: aSrah (Patient is to follow-up with Dr. Hutchinson in the morning he will be controlled with a prescription of Eliquis) Will see patient in: other (he wants the patient to go home on eliquis) <FABIO ROONEY - Last Filed: 03/30/24 04:08> - Progress Progress Note: care of this patient assumed from Dr munguia - venous doppler pending 03/29/24 13:35 Patient's CAT scan was reviewed this reveals bilateral pulmonary emboli I spoke to the patient's primary care provider Dr. Hutchinson, he wants the patient to receive Lovenox and Eliquis here in the department. Patient will be discharged home with a prescription of Eliquis. She was updated with the plan and is agreeable to the current treatment regimen. He has no symptoms of shortness of breath or chest pain at this time and will follow-up with his doctor in the morning 03/29/24 18:34 (FABIO ROONEY) Medical Desision Making - Discussion of managment Care discussed with:: PCP Reviewed:: Need for additional workup Agreed on:: Treatment plan, need for follow-up Will see patient: In office <FABIO ROONEY - Last Filed: 03/30/24 04:08> - Departure Critical Care Time: No <RITCHIE BECKFORD - Last Filed: 03/29/24 12:59> <FABIO ROONEY - Last Filed: 03/30/24 04:08> - Departure Clinical Impression: Swelling of right lower extremity, DVT (deep venous thrombosis), Pulmonary emb olism, bilateral Condition: Stable Referrals: ORIN HUTCHINSON [Primary Care Provider] - Follow up/PCP as directed Instructions: Pulmonary embolism (blood clot in the lung), Deep Vein Thrombosis (DVT) ED Prescriptions: Apixaban [Eliquis] 10 mg PO BIDWMEALS 7 Days #14 tablet
[2024-03-29 13:28] LABS: Absolute Neutrophil Ct (ANC) 4.45 x10^3/uL (1.4-6.9); BASOPHIL % 0.7 % (0.0-0.4); Basophil (Absolute #) 0.05 x10^3/uL (0-0.4); Eosinophil % 5.3 % (0.00-5.0); Eosinophil (Absolute #) 0.36 x10^3/uL (0-0.5); Hematocrit 40.4 % (42-50); Hemoglobin 13.3 g/dL (12.5-18.0); IMMATURE GRAN # 0.02 x10^3u/L (0.00-0.03); IMMATURE GRAN % 0.3 % (0.00-0.4); Lymphocyte (Absolute #) 1.36 x10^3/uL (1.0-4.6); Lymphocytes % 19.9 % (24.0-44.0); Mean Cell Volume 86.5 fL (78-100); Mean Corpuscular Hemoglobin 28.5 pg (26-32); Mean Corpuscular Hgb Concent. 32.9 g/dL (32-36); Mean Platelet Volume 9.6 fL (7.5-11.0); Monocyte (Absolute #) 0.59 x10^3/uL (0.0-1.3); Monocytes % 8.6 % (0.0-12.0); Neutrophil % 65.2 % (36.0-66.0); Platelet Count 274 x10^3/uL (150-450); Red Blood Count 4.67 x10^6/uL (4.1-5.6); Red Cell Distribution Width 13.2 % (11.5-14.0); White Blood Count 6.8 x10^3/uL (4.0-10.5)
[2024-03-29 13:41] LABS: ALBUMIN 3.9 g/dL (3.5-5.0); ANION GAP 12.6 MEQ/L (5-15); BILIRUBIN,TOTAL 0.6 mg/dL (0.2-1.3); Calcium 8.9 mg/dL (8.4-10.2); Creatinine 1 0.86 mg/dL (0.66-1.25); EST GLOMERULAR FILTRATION RATE 104.2 ML/MIN; Potassium 4.6 mmol/L (3.5-5.1); Total Protein 7.6 g/dL (6.3-8.2)
[2024-03-29 13:42] LABS: INR 0.94 (0.8-3.0); PROTIME 10.3 SECONDS (9.4-12.5)
--- NOTE | 2024-03-29 14:19 | XRAY ---
Indication: Pain. Two-dimensional sonogram and color Doppler imaging major venous vessels left and right leg performed. Comparison: None Right leg demonstrates occluding thrombi throughout the greater saphenous vein. No thrombus seen in the remaining deep venous vessels left and right leg. Patent veins demonstrate normal compressibility and normal venous waveforms bilaterally Impression: Occluding thrombi throughout right greater saphenous vein. Left leg negative for DVT.
--- NOTE | 2024-03-29 16:34 | XRAY ---
Indication: Right leg DVT. Multiple contiguous axial images obtained through the chest using 80 cc Isovue 370 contrast and PE protocol. Comparison: None Good opacification of the pulmonary arteries. Nonoccluding emboli seen throughout right lung including lobar and segmental branches, greatest in right lower lobe. Additional nonoccluding emboli seen in left lower lobe. Heart not enlarged. Aorta is normal course and caliber. No pathologic mediastinal/hilar lymphadenopathy. Lungs inflated and clear. Bony thorax intact. Limited upper abdomen demonstrates fatty liver and 2.6 cm right adrenal adenoma. Impression: 1. Diffuse nonoccluding bilateral pulmonary emboli. No pulmonary infarct. 2. Incidental fatty liver and right adrenal adenoma.
[2024-03-29] MEDS ORDERED: ENOXAPARIN SODIUM SQ ONE (18:35)
[2024-03-29] MEDS: ENOXAPARIN SODIUM SQ ONE (18:36)
[2024-03-29] MEDS: ELIQUIS 2.5 MG TABLET PO ONE (18:51)
[2024-03-29 19:01] VITALS: BP 111/77; PULSE 98; O2SAT 100
== END 2024-03-29 19:02 | disposition home or self-care (01) ==
LOC: ED 12:39
DX: I82.401 Acute embolism and thrombosis of unspecified deep veins of right lower extremity (principal); I26.99 Other pulmonary embolism without acute cor pulmonale; M79.89 Other specified soft tissue disorders; M79.604 Pain in right leg; E78.5 Hyperlipidemia, unspecified; E11.9 Type 2 diabetes mellitus without complications; Z79.01 Long term (current) use of anticoagulants; Z79.85 Long-term (current) use of injectable non-insulin antidiabetic drugs; Z79.899 Other long term (current) drug therapy
CPT/HCPCS: 36000; 36415; 71260; 80053; 82550; 83605; 83735; 85025; 85610; 93970; 96372; 99284; J1650; A9270-GY

== ENCOUNTER 2024-07-15 19:58 | Emergency (ER) | payer BC, OTHER ==
--- NOTE | 2024-07-15 20:10 | ERPHSYRPT ---
- History of Present Illness Time Seen by Provider: 07/15/24 20:08 Source: patient Exam Limitations: no limitations Physician History: This is a 54-year-old white male patient who is incarcerated in prison and was brought into the emergency department because of intermittent hemoptysis while lying flat over the last 3 to 4 weeks. Patient has stopped his Eliquis because of the symptoms that he has been having. On 03/29/2024, the patient was diagnosed with diffuse nonoccluding bilateral pulmonary emboli and was placed on Eliquis. In addition, on 03/29/2024 patient was found to have an occluding superficial thrombosis of the right greater saphenous vein but no deep venous thrombosis in either leg. Patient states that he sometimes is short of breath because of the coughing episodes that lying flat causes. He does not have chest pain. Patient has a history of hyperlipidemia, diabetes and arrhythmia. Approximately 2 weeks ago, patient was seen by tape maker in an outpatient setting and he does not know the results of those studies. I reviewed the studies as dictated above that were performed on 03/29/2024. Patient's vital signs are stable on admission into the emergency department with respiratory rate of 17, systolic blood pressure 142, afebrile, heart rate in the 70 bpm range, and room air oxygen saturation levels of 99 to 100%. Timing/Duration: week(s) (3 to 4 weeks) Activities at Onset: other (Lying flat) Severity of Dyspnea-Max: none Severity of Dyspnea-Current: none Possible Cause: occasional episodes (In the last 3 to 4 weeks) Modifying Factors: Improves With: coughing, lying down Associated Symptoms: cough, hemoptysis, No chest pain/discomfort Allergies/Adverse Reactions: No Known Drug Allergies Allergy (Verified 03/29/24 12:44) Home Medications: Dulaglutide [Trulicity] 1.5 mg SQ UD 01/29/22 [History] Atorvastatin Calcium 10 mg PO DAILY 03/29/24 [History] Hx Tetanus, Diphtheria Vaccination/Date Given: Yes Hx Influenza Vaccination/Date Given: No Hx Pneumococcal Vaccination/Date Given: No Travel Risk - International Travel Have you traveled outside of the country in past 3 weeks: No - Emerging Infectious Disease Are you exhibiting symptoms associated with any current EIDs: No - Review of Systems Constitutional: No Symptoms Eyes: No Symptoms Ears, Nose, & Throat: No Symptoms Respiratory: Cough Cardiac: No Symptoms Abdominal/Gastrointestinal: No Symptoms Genitourinary Symptoms: No Symptoms Musculoskeletal: No Symptoms Skin: No Symptoms Neurological: No Symptoms Psychological: No Symptoms Endocrine: No Symptoms Hematologic/Lymphatic: No Symptoms Immunological/Allergic: No Symptoms All Other Systems: Reviewed and Negative - Past Medical History Pertinent Past Medical History: Yes Neurological History: No Pertinent History ENT History: No Pertinent History Cardiac History: Arrhythmia, High Cholesterol Respiratory History: No Pertinent History Endocrine Medical History: Diabetes Type II Musculoskeletal History: No Pertinent History GI Medical History: No Pertinent History History: No Pertinent History Psycho-Social History: No Pertinent History Male Reproductive Disorders: No Pertinent History - Past Surgical History Past Surgical History: Yes Neuro Surgical History: No Pertinent History Cardiac: No Pertinent History Respiratory: No Pertinent History Gastrointestinal: No Pertinent History Genitourinary: No Pertinent History Musculoskeletal: No Pertinent History Male Surgical History: No Pertinent History Other Surgical History: left foot reconstruction from mowing accident Significant Family History: no pertinent family hx - Social History Smoking Status: Former smoker Exposure to second hand smoke: No Drug Use: none Patient Lives Alone: No - Social Determinants of Health Will the patient participate in the screening: Yes Do you worry about a steady place to live?: No In the past 12 months,have you had to go without utilities?: No Transportation Issues: No Has anyone in your support network made you feel unsafe?: No Have you or anyone in your house had to go without enough: No - Nursing Vital Signs Nursing Vital Signs: Initial Vital Signs Pulse Rate 82 07/15/24 20:46 Respiratory Rate 16 07/15/24 20:46 Blood Pressure 143/82 07/15/24 20:46 O2 Sat by Pulse Oximetry 99 07/15/24 20:46 Pain Scale Pain Intensity 3 - Physical Exam General Appearance: no apparent distress, alert, anxiety Eye Exam: PERRL/EOMI, eyes nml inspection Ears, Nose, Throat Exam: hearing grossly normal, normal ENT inspection, normal pharynx Neck Exam: normal inspection, non-tender, supple, full range of motion Respiratory Exam: normal breath sounds, lungs clear, airway intact, No chest tenderness, No respiratory distress Cardiovascular/Chest Exam: normal heart sounds Abdominal/Gastrointestinal Exam: soft, normal bowel sounds, No tenderness Rectal Exam: not done Extremity Exam: non-tender, normal range of motion, normal inspection, normal capillary refill, no calf tenderness, no pedal edema, pelvis stable, calf tenderness Neurologic Exam: alert, oriented x 3, cooperative, recruiting manager II-XII nml as tested, nml cerebellar function, nml station & gait, sensation nml Skin Exam: normal color, warm, dry Lymphatic Exam: No adenopathy SpO2 Interpretation: normal O2 Delivery: Room Air - Course Nursing assessment & vital signs reviewed: Yes Ordered Tests: Active Orders 24 hr Category Date Time Status EKG-ER Only STAT Care 07/15/24 21:17 Active IV Insertion STAT Care 07/15/24 21:17 Active CHEST WITH CONTRAST [CT] Stat Exams 07/15/24 21:18 Completed CBC W DIFF Stat Lab 07/15/24 21:30 Completed CMP Stat Lab 07/15/24 21:30 Completed Lactic Acid Stat Lab 07/15/24 21:40 Completed NT PRO BNPII Stat Lab 07/15/24 21:30 Completed PROTIME WITH INR Stat Lab 07/15/24 21:30 Completed TROPONIN Q4H Lab 07/15/24 21:30 Completed TROPONIN Q4H Lab 07/16/24 01:30 Ordered TROPONIN Q4H Lab 07/16/24 05:30 Ordered Medication Summary Generic Name Dose Route Start Last Admin Trade Name Freq PRN Reason Stop Dose Admin Sodium Chloride 500 mls @ 50 mls/hr 07/15/24 21:30 07/15/24 21:24 Sodium Chloride 0.9% 500 Ml IV 08/14/24 21:29 50 mls/hr .Q10H CHINO Administration Discontinued Medications Generic Name Dose Route Start Last Admin Trade Name Freq PRN Reason Stop Dose Admin Sodium Chloride Confirm 07/15/24 21:22 Sodium Chloride 0.9% 1000 Ml Administered 07/15/24 21:23 Dose 1,000 mls @ ud .ROUTE .STK-MED ONE Lab/Rad Data: Laboratory Result Diagrams 07/15/24 21:30 07/15/24 21:30 Laboratory Results 07/15/24 07/15/24 07/15/24 Range/Units 21:40 21:30 21:30 WBC (4.23-9.07) x10^3/uL RBC (4.63-6.08) x10^6/uL Hgb (13.7-17.5) g/dL Hct (40.1-51.0) % MCV (79.0-92.2) fL MCH (25.7-32.2) pg MCHC (32.3-36.5) g/dL RDW (11.6-14.4) % Plt Count (163-337) x10^3/uL MPV (9.4-12.4) fL Gran % (34.0-67.9) % Immature Gran % (Auto) (0.001-0.429) % Nucleat RBC Rel Count (0.00-0.2) % Eos # (Auto) (0.04-0.54) x10^3/uL Immature Gran # (Auto) (0.001-0.031) x10^3u/L Absolute Lymphs (auto) (1.32-3.57) x10^3/uL Absolute Monos (auto) (0.30-0.82) x10^3/uL Absolute Nucleated RBC (0.00-0.012) x10^3u/L Lymphocytes % (21.8-53.1) % Monocytes % (5.3-12.2) % Eosinophils % (0.8-7.0) % Basophils % (0.2-1.2) % Absolute Granulocytes (1.78-5.38) x10^3/uL Basophils # (0.01-0.08) x10^3/uL PT 10.2 (9.4-12.5) SECONDS INR 0.93 (0.8-3.0) Sodium (135-145) mmol/L Potassium (3.5-5.1) mmol/L Chloride (98-107) mmol/L Carbon Dioxide (22-30) mmol/L Anion Gap (5-15) MEQ/L BUN (9-20) mg/dL Creatinine (0.66-1.25) mg/dL Estimated GFR ML/MIN Glucose (74-106) mg/dL Lactic Acid 1.8 (0.4-2.0) Calcium (8.4-10.2) mg/dL Total Bilirubin (0.2-1.3) mg/dL AST (17-59) U/L ALT (0-50) U/L Alkaline Phosphatase (38-126) U/L Troponin I < 0.012 (0.000-0.033) ng/mL NT-Pro-B Natriuret Pep (<300) pg/mL Serum Total Protein (6.3-8.2) g/dL Albumin (3.5-5.0) g/dL 07/15/24 07/15/24 Range/Units 21:30 21:30 WBC 6.4 (4.23-9.07) x10^3/uL RBC 4.79 (4.63-6.08) x10^6/uL Hgb 13.8 (13.7-17.5) g/dL Hct 41.8 (40.1-51.0) % MCV 87.3 (79.0-92.2) fL MCH 28.8 (25.7-32.2) pg MCHC 33.0 (32.3-36.5) g/dL RDW 13.8 (11.6-14.4) % Plt Count 290 (163-337) x10^3/uL MPV 9.9 (9.4-12.4) fL Gran % 59.5 (34.0-67.9) % Immature Gran % (Auto) 0.2 (0.001-0.429) % Nucleat RBC Rel Count 0.0 (0.00-0.2) % Eos # (Auto) 0.30 (0.04-0.54) x10^3/uL Immature Gran # (Auto) 0.01 (0.001-0.031) x10^3u/L Absolute Lymphs (auto) 1.78 (1.32-3.57) x10^3/uL Absolute Monos (auto) 0.47 (0.30-0.82) x10^3/uL Absolute Nucleated RBC 0.00 (0.00-0.012) x10^3u/L Lymphocytes % 27.8 (21.8-53.1) % Monocytes % 7.3 (5.3-12.2) % Eosinophils % 4.7 (0.8-7.0) % Basophils % 0.5 (0.2-1.2) % Absolute Granulocytes 3.82 (1.78-5.38) x10^3/uL Basophils # 0.03 (0.01-0.08) x10^3/uL PT (9.4-12.5) SECONDS INR (0.8-3.0) Sodium 136 (135-145) mmol/L Potassium 4.7 (3.5-5.1) mmol/L Chloride 102 (98-107) mmol/L Carbon Dioxide 26 (22-30) mmol/L Anion Gap 13.2 (5-15) MEQ/L BUN 14 (9-20) mg/dL Creatinine 0.81 (0.66-1.25) mg/dL Estimated GFR 105.4 ML/MIN Glucose 262 H (74-106) mg/dL Lactic Acid (0.4-2.0) Calcium 9.1 (8.4-10.2) mg/dL Total Bilirubin 0.60 (0.2-1.3) mg/dL AST 25 (17-59) U/L ALT 36 (0-50) U/L Alkaline Phosphatase 81 (38-126) U/L Troponin I (0.000-0.033) ng/mL NT-Pro-B Natriuret Pep 77.1 (<300) pg/mL Serum Total Protein 7.4 (6.3-8.2) g/dL Albumin 4.0 (3.5-5.0) g/dL - Progress Progress: re-examined, unchanged Air Movement: good Progress Note: 07/15/24 21:34 My medical decision making and the assignment of moderate complexity to this patient's medical issue today is based on review of the patient's past medical history, review the patient's medication list, reviewed patient drug allergy list, history present illness and physical findings on examination. The workup in this patient includes placement of intravenous line, CBC, CMP, twelve-lead EKG, troponin level, BNP, PT/INR, CT scan of the chest with contrast. Differential diagnosis includes but is not limited to pneumonia, pulmonary embolism, anemia, CHF, arrhythmia, myocardial infarction 07/15/24 22:17 I interpreted the patient's laboratory data results. Based on the laboratory data results, the patient is not anemic and his coagulation parameters are within normal limits. It is my belief that the patient should be on anticoagulation therapy if there is radiographic evidence of pulmonary emboli. We will await the CT scan of the chest with contrast report. 07/15/24 23:[address] of the chest with contrast was interpreted by the radiologist and I reviewed the impression. The present states no pulmonary embolus. No pneumonia, lungs are clear without infiltrate, no aneurysm, no venous thrombus, no adenopathy, no pericardial effusion, no acute cardiopulmonary pathology Blood Culture(s) Obtained: No Antibiotics given: No Counseled pt/family regarding: lab results, diagnosis, need for follow-up, rad results Medical Desision Making - Diagnostic Testing Diagnostic test were ordered, analyzed, and reviewed by me: Yes Radiological Interpretation: Reviewed by me, Teleradiologist Report - Risk of complications Low Risk: Low risk of morbidity from additional dx testing or treatment - Departure Departure Disposition: Half-Way/Senior Care Clinical Impression: Hemoptysis Condition: Stable Critical Care Time: No Referrals: ORIN HUTCHINSON [Primary Care Provider] - Follow up/PCP as directed Additional Instructions: Stop aspirin and ibuprofen and any anticoagulation therapy you are taking. Call your tape maker on 07/18/2024, to make arrangements for follow-up appointment to review workup results and future management of issues. Call your primary care provider on 07/18/2024, to make arrangements for an outpatient appointment to see a survey manager for possible bronchoscopy and to be seen next week.
[2024-07-15 21:05] VITALS: TEMP 98
[2024-07-15] MEDS ORDERED: Sodium Chloride 0.9% 1000 ML 0 ML ONE (21:22)
[2024-07-15] MEDS ORDERED: Sodium Chloride 0.9% 500 ML 500 ML IV ONE (21:23)
[2024-07-15] MEDS: Sodium Chloride 0.9% 500 ML 500 ML IV SCH (21:24)
[2024-07-15 21:36] LABS: Absolute Neutrophil Ct (ANC) 3.82 x10^3/uL (1.78-5.38); BASOPHIL % 0.5 % (0.2-1.2); Basophil (Absolute #) 0.03 x10^3/uL (0.01-0.08); Eosinophil % 4.7 % (0.8-7.0); Hematocrit 41.8 % (40.1-51.0); Hemoglobin 13.8 g/dL (13.7-17.5); IMMATURE GRAN # 0.01 x10^3u/L (0.001-0.031); IMMATURE GRAN % 0.2 % (0.001-0.429); Lymphocyte (Absolute #) 1.78 x10^3/uL (1.32-3.57); Lymphocytes % 27.8 % (21.8-53.1); Mean Cell Volume 87.3 fL (79.0-92.2); Mean Corpuscular Hemoglobin 28.8 pg (25.7-32.2); Mean Platelet Volume 9.9 fL (9.4-12.4); Monocyte (Absolute #) 0.47 x10^3/uL (0.30-0.82); Monocytes % 7.3 % (5.3-12.2); Neutrophil % 59.5 % (34.0-67.9); Platelet Count 290 x10^3/uL (163-337); Red Blood Count 4.79 x10^6/uL (4.63-6.08); Red Cell Distribution Width 13.8 % (11.6-14.4); White Blood Count 6.4 x10^3/uL (4.23-9.07)
[2024-07-15 21:49] LABS: INR 0.93 (0.8-3.0); PROTIME 10.2 SECONDS (9.4-12.5)
[2024-07-15 21:58] LABS: ANION GAP 13.2 MEQ/L (5-15); BILIRUBIN,TOTAL 0.6 mg/dL (0.2-1.3); Calcium 9.1 mg/dL (8.4-10.2); Creatinine 1 0.81 mg/dL (0.66-1.25); EST GLOMERULAR FILTRATION RATE 105.4 ML/MIN; NT PRO BNPII 77.1 pg/mL (<300); Potassium 4.7 mmol/L (3.5-5.1); Total Protein 7.4 g/dL (6.3-8.2)
--- NOTE | 2024-07-15 23:18 | XRAY ---
CLINICAL HISTORY: Hemoptysis COMPARISON: CT dated 03/29/2024 TECHNIQUE: Contiguous CT angiographic images of the chest were acquired with the administration of intravenous contrast following PE protocol. Coronal and sagittal reconstructions were obtained. One of these 3D techniques was utilized: Maximum Intensity Pixel (MIP), 3D Reconstructed Images, Volume Rendered Images, Surface Shaded Rendering. One of the following dose reduction techniques were utilized for this exam: Automated exposure control, adjustment of the mA and/or kV according to patient size, and use of iterative reconstruction. FINDINGS: Pulmonary Arteries: Pulmonary arteries are normal in size and opacification. No evidence of pulmonary embolism. No stenosis or filling defects. Aorta: The thoracic aorta is normal in caliber. No evidence of aneurysm, dissection, or significant atherosclerotic changes. Aortic arch and descending thoracic aorta are unremarkable. Superior Vena Cava (SVC) and Inferior Vena Cava (IVC): Normal opacification and caliber. No evidence of thrombus or obstruction. Mediastinum: No mediastinal mass or lymphadenopathy. Normal appearance of the thymus. Heart: Normal size and morphology of the heart. No pericardial effusion. Lungs: Lungs are clear with no evidence of consolidation, nodules, or masses. No pleural effusion or thickening. Bones: No fractures or lytic/sclerotic lesions of the visualized bony structures. Normal alignment and bone density. Thyroid: A small hypodense nodule is identified within the right lobe of thyroid gland measuring 6 mm in size. Rest of the visualized thyroid gland appears normal. Soft Tissues: Normal appearance of the visualized soft tissues. No abnormal masses or fluid collections. Gallbladder is suboptimally distended with subtle radiopaque densities which are partially visualized therefore cannot be further characterized. Tiny calcific foci are identified within the pancreatic parenchymal tail. Tiny exophytic cyst is partially visualized in th eleft superior renal pole. IMPRESSION: 1. Normal CT angiography of the chest. 2. No evidence of significant vascular abnormalities. 3. No acute cardiopulmonary pathology identified. 4. No significant interval change. Electronically Signed by: Renee Law MD. (07/15/2024 23:13:18 EDT)
[2024-07-15] MEDS: Lasix 40 MG/4 ML IV ONE (23:24)
[2024-07-15] MEDS ORDERED: Lasix 40 MG/4 ML ONE (23:24)
[2024-07-16 00:51] VITALS: BP 157/84; PULSE 84; RESP 17; O2SAT 100
== END 2024-07-16 00:57 ==
LOC: ED 19:58
DX: R04.2 Hemoptysis (principal); E78.5 Hyperlipidemia, unspecified; E11.9 Type 2 diabetes mellitus without complications; I49.9 Cardiac arrhythmia, unspecified
CPT/HCPCS: 36000; 36415; 71260; 80053; 83605; 83880; 84484; 85025; 85610; 93005; 96374; 99284; J1940